=== PATIENT | male | born 1985 | race Caucasian/White ===

== ENCOUNTER 2022-08-06 17:57 | Emergency (ER) | payer OTHER ==
[~2022-08-06 17:57] MED LIST: Iopamidol 370 76% 100 ML VIAL ONE
[2022-08-06 18:49] LABS: #Basophils 0.1 thou/uL (0.0-0.2); #Eosinphils 0.5 thou/uL (0.0-0.7); #Lymphocytes 3.3 thou/uL (1.20-3.40); #Monocytes 0.6 thou/uL (0.11-0.59); #Neutrophils 5.3 thou/uL (1.40-6.50); %Basophils 1.2 % (0.0-1.0); %Eosinophils 4.9 % (0.0-10.0); %Monocytes 5.9 % (0.0-10.0); %Neutrophils 53.9 % (42.0-75.0); Hemoglobin 16.4 g/dL (14.0-18.0); Mean Corpuscular HGB CONC 33.9 g/dL (32.0-36.0); Mean Corpuscular Hemoglobin 33.7 pg (27.0-31.0); Mean Corpuscular Volume 99.4 fl (78.0-98.0); Mean Platelet Volume 10.6 fL (7.4-10.4); Platelet Count 266 10x3/uL (130-400); RBC Distribution Width 11.7 % (11.5-14.5); Red Blood Cell (RBC) Count 4.86 mill/uL (4.70-6.10); White Blood Cell (WBC) Count 9.8 10x3/uL (4.8-10.8)
[2022-08-06] MEDS ORDERED: Ketorolac Tromethamine 30 MG/ML VIAL ONE (18:55)
[2022-08-06] MEDS ORDERED: Sodium Chloride 0.9% 1,000 ML ONE (18:55)
[2022-08-06 19:02] LABS: Anion Gap 18 mmol/L (10-20); BUN (Urea Nitrogen) 15 mg/dL (8.9-20.6); Calc. Creatinine Clearance 0 mL/min (70-130); Calcium 9.5 mg/dL (7.8-10.44); Carbon Dioxide 24 mmol/L (22-29); Chloride 103 mmol/L (98-107); Estimated GFR 63; Glucose 109 mg/dL (70-105); Sodium 141 mmol/L (136-145)
[2022-08-06 20:30] LABS: Bilirubin Negative (Negative); Blood, Urine Negative (Negative); Clarity Clear (Clear); Glucose, Urine (Dipstick) Negative (Negative); Ketone, Urine Trace mg/dL (Negative); Leukocyte Negative (Negative); Nitrite Negative (Negative); Protein, Urine (Dipstick) Negative (Neg-Trace); Urobilinogen 0.2 mg/dL (Less than 2)
== END 2022-08-06 20:52 | disposition home or self-care (01) ==
LOC: MADERS 17:57
DX: S20.211A Contusion of right front wall of thorax, initial encounter (principal); V86.55XA Driver of 3- or 4- wheeled all-terrain vehicle (ATV) injured in nontraffic accident, initial encounter; Y92.410 Unspecified street and highway as the place of occurrence of the external cause
CPT/HCPCS: 36415; 71260; 74177; 80048; 81003; 85025; J1885; J7050; Q9967